=== PATIENT | female | born 1960 | race Caucasian/White ===

== ENCOUNTER 2016-08-10 11:57 | Emergency (ER) | payer OTHER | END 2016-08-10 12:32 | disposition home or self-care (01) | LOC: ER 11:57 | DX: J20.9 Acute bronchitis, unspecified (principal); R05 Cough; Z79.899 Other long term (current) drug therapy; Z98.890 Other specified postprocedural states; Z90.49 Acquired absence of other specified parts of digestive tract | CPT/HCPCS: 99282 ==